=== PATIENT | male | born 1940 | race Caucasian/White ===

== ENCOUNTER 2016-12-14 11:47 | Outpatient (CLI) | payer MEDICARE, OTHER ==
[~2016-12-14] VITALS: Ht 190.5 cm; Wt 88.6 kg
--- NOTE | ~2016-12-14 | HEMODYNAMI ---
PATIENT:KESHAV GIRON MEDICAL RECORD: [id number] : 38 LOCATION:[facility] ADMISSION DATE: 12/14/16 Generatedon:12/14/201615:19 Patient name: KESHAV GIRNO Patient #: [id number] SSN: : 1940 Date of study: 12/14/2016 Page: Of Hemodynamic Procedure Report Patient Data Patient Demographics Procedure consent was obtained First Name: KESHAV Gender: Male Last Name: BREE : 1940 Patient #: [id number] Age: 76 year(s) Race: Unknown Additional ID: [id number] Contact details Address: [address] [place] [address] State: [place] City: [place] Zip code: [address] Admission Admission Data Admission Date: 12/14/2016 Admission Time: 11:47 Height (in.): 74 BSA: 2.14 (m2) Height (cm.): 187.96 BMI: 24.65 (kg/m2) Weight (lbs.): 192 Weight (kg.): 87.09 Lab Results Lab Result Date: 12/14/2016 Lab Result Time: 0:00 Biochemistry Name Units Result Min Max Creatinine mg/dl 1 --(--*-)-- 0.6 1.3 CBC Name Units Result Min Max Hemoglobin g/dl 15.7 --(--*-)-- 13.5 17.5 Procedure Procedure Types Cath Procedure Diagnostic Procedure [facility] w/Coronaries Miscellaneous Procedures Moderate Sedation up to 15 minutes Moderate Sedation up to 30 minutes Procedure Description Procedure Date Procedure Date: 12/14/2016 Procedure Start Time: 14:46 Procedure End Time: 15:17 Procedure Staff Name Function Mo Todd RN Nurse Benny Eubanks MD Performing Physician Angelito Jackman RT Monitor Miranda Chavez RT Scrub Procedure Data Cath Procedure Fluoroscopy Diagnostic fluoroscopy Total fluoroscopy Time: 6.4 time: 6.4 min min Diagnostic fluoroscopy Total fluoroscopy dose: 888 dose: 888 mGy mGy Contrast Material Contrast Material Type Amount (ml) Isovue 300 132 Entry Location Entry Primary Successful Side Size Upsize Upsize Entry Closure Tobias ccessful Closure Location (Fr) 1 (Fr) 2 (Fr) Remarks Device Remarks Radial Right 6 Fr Mechanical artery Short Compression Femoral Right 5 Fr Exoseal artery Estimated blood loss: 5 ml Diagnostic catheters Device Type Used For End Catheter Placement Diagnostic Terumo 5Fr Procedure [place] 110cm catheter Cordis 5Fr JL 4.0 Procedure Catheter (MP) Diagnostic Infinity 5Fr Procedure JL 5 catheter Cordis 5Fr 3DRC Catheter Procedure (MP) Diagnostic Infinity 5Fr Procedure AR 1 MOD catheter Cordis 5Fr Pigtail Procedure Catheter (MP) Procedure Complications No complications Procedure Medications Medication Administration Route Dosage Oxygen NC 2 l/min Lidocaine 2% added to field 20 Heparin Flush Bag added to field 2 bags (1000units/500ml NS) 0.9% NaCl I.V. 100 ml/hr Versed I.V. 1 mg Fentanyl I.V. 50 mcg Versed I.V. 1 mg Fentanyl I.V. 50 mcg Versed I.V. 1 mg Fentanyl I.V. 50 mcg Radial Cocktail I.A. 1 syringe (Verapomil 2mg/Nitro 400mcg/Heparin 1500units) Versed I.V. 1 mg Fentanyl I.V. 50 mcg Hemodynamics Rest BSA: 2.14 (m2) HGB: 15.7 (g/dl) O2 Consumption: Estimated: 239.37 (ml/min) O2 Co nsumption indexed: Estimated:111.86 (ml/min/m) Heart Rate: 63 (bpm) Pressure Samples Time Site Value (mmHg) Purpose Heart Use Rate(bpm) 15:02 LV 107/6,8 EDP 66 Gradients Valve Time Site Site Mean SEP/DFP Peak To Heart Use 1 2 (mmHg) (sec/min) Peak Rate (mmHg) (bpm) Aortic 15:02 LV AO 69 Snapshots Pre Cath Intra NCS Post Cath Vital Signs Time Heart Resp SPO2 NIBP (mmHg) Rhythm Pain Sedation Rate (ipm) (%) Status Level (bpm) 14:36:47 69 17 98 148/87(119) NSR 0 (11) 10(A) , No pain 14:41:01 66 16 96 140/92(112) NSR 0 (11) 10(A) , No pain 14:45:15 67 16 98 139/78(108) NSR 0 (11) 10(A) , No pain 14:49:33 68 16 98 116/67(83) NSR 0 (11) 9(A) , No pain 14:53:43 66 19 94 116/67(93) NSR 0 (11) 9(A) , No pain 14:57:51 67 18 95 133/72(101) NSR 0 (11) 9(A) , No pain 15:02:07 71 17 94 119/66(89) NSR 0 (11) 9(A) , No pain 15:06:17 66 17 96 123/71(90) NSR 0 (11) 10(A) , No pain 15:10:22 62 12 96 132/85(108) NSR 0 (11) 10(A) , No pain 15:14:30 71 14 96 128/89(109) NSR 0 (11) 10(A) , No pain Medications Time Medication Route Dose Verified Delivered Reason Notes Effectiveness by by 14:36:25 Oxygen NC 2 l/min Benny Alejandraie used for St. Charli Todd RN procedure 14:36:32 Lidocaine 2% added 20ml Benny Benny for local to vial [facility] anesthetic field MD ROMERO 14:36:39 Heparin Flush added 2 bags Benny Benny used for Bag to [facility] procedure (1000units/500ml field MD ROMERO NS) 14:36:50 0.9% NaCl I.V. 100 Benny Alejandraie Per ml/hr St. Charli Todd RN physician 14:41:04 Versed I.V. 1 mg Benny Buffie for sedation St. Charli Todd RN, MD 14:41:09 Fentanyl I.V. 50 mcg Benny Buffie for sedation St. Charli Todd RN, MD 14:43:22 Versed I.V. 1 mg Benny Buffie for sedation St. Charli Todd RN, MD 14:43:26 Fentanyl I.V. 50 mcg Benny Buffie for sedation St. Charli Todd RN, MD 14:47:35 Versed I.V. 1 mg Benny Buffie for sedation St. Charli Todd RN, MD 14:47:39 Fentanyl I.V. 50 mcg Benny Alejandraie for sedation St. Charli Todd RN, MD 14:47:47 Radial Cocktail I.A. 1 Benny Zapata for (Verapomil syringe ChaKhushbu Eubanks vasodilation 2mg/Nitro MD ROMERO 400mcg/Hepari 14:56:58 Versed I.V. 1 mg Benny Hassan for sedation St. Charli Todd RN, MD 15:08:35 Fentanyl I.V. 50 mcg Benny Hassan for sedation St. Charli Todd RN, MD Procedure Log Time Note 14:12:18 Patient Height : 187.96 cm 14:12:21 Patient Weight : 87.09 kg 14:12:50 Diagnostic Cath Status : Elective 14:13:20 Mo Todd RN sent for patient. Start room use. 14:13:21 Time tracking: Regular hours 14:13:27 Plan of Care:Hemodynamics will remain stable., Cardiac rhythm will remain stable., Comfort level will be maintained., Respiratory function will remain adequate., Patient/ family verbilizes understanding of procedure., Procedure tolerated without complication., Recovers from procedure without complications.. 14:28:37 Patient received from Pre/Post Procedure Room to CCL 2 Alert and oriented. Tansferred to table in Supine position. 14:28:39 Correct patient and procedure confirmed by team. 14:28:39 Warm blankets applied, and ludivina hugger turned on for patient comfort. 14:28:41 Signed procedure consent form obtained from patient. 14:28:42 ECG and BP/O2 sat monitors applied to patient. 14:28:45 Pre-op teaching completed and patient verbalized understanding. 14:28:45 Pre-procedure instructions explained to patient. 14:28:46 Family in patients room. 14:28:47 Patient NPO since Midnight. 14:28:50 Is the patient allergic to Iodine/contrast media? No. 14:28:54 Previous problem with sedation/anesthesia? No ? 14:28:55 Snore? Yes 14:28:56 Deviated septum? No 14:28:56 Sleep apnea? No 14:28:57 Opens mouth fully? Yes 14:28:58 Sticks out tongue? Yes 14:29:01 Airway obstruction? No ? 14:29:03 Dentures? No ? 14:29:17 Is patient on blood thinner?No 14:29:36 Patient diabetic? Yes. 14:29:37 If diabetic: On Metformin? Yes 14:29:57 If on Metformin: Last Dose? 12/12/2016 14:35:32 Vital chart was started 14:35:36 Rhythm: sinus rhythm 14:35:38 Full Disclosure recording started 14:35:45 Pre procedure: right dorsailis pedis pulse 2+ Normal; easily identifiable; not easily obliterated 14:35:47 Modified Sheldon's test Ulnar < 7 seconds 14:35:50 Patient pain scale 0/10 ?. 14:35:56 IV patent on arrival in left hand with 0.9% NaCl at O. 14:36:01 Lab results completed and on chart. 14:36:05 Right Radial & Right Groin area was prepped with chlora-prep and draped in sterile fashion 14:36:06 Sharps counted by scrub and verified by R.N. 14:36:06 Alarms reviewed by R. N. 14:36:25 Oxygen 2 l/min NC was administered by Mo Todd RN; used for procedure; 14:36:32 Lidocaine 2% 20ml vial added to field was administered by Benny Eubanks MD; for local anesthetic; 14:36:39 Lab Result : Hemoglobin 15.7 g/dl 14:36:39 Lab Result : Creatinine 1 mg/dl 14:36:39 Heparin Flush Bag (1000units/500ml NS) 2 bags added to field was administered by Benny Eubanks MD; used for procedure; 14:36:46 Use device set Radial Dx 14:36:47 Bag Decanter opened to sterile field. 14:36:47 Medline Cath Pack opened to sterile field. 14:36:47 Acist Syringe opened to sterile field. 14:36:48 Acist Hand Control opened to sterile field. 14:36:48 St Gualberto 260cm J .035 wire opened to sterile field. 14:36:48 Terumo 6Fr Slender Glidesheath opened to sterile field. 14:36:49 Tegaderm 4 x 4 opened to sterile field. 14:36:49 Acist Manifold opened to sterile field. 14:36:50 MBrace Wrist Support opened to sterile field. 14:36:50 0.9% NaCl 100 ml/hr I.V. was administered by Mo Todd RN; Per physician; 14:39:12 Baseline sample Acquired. 14:40:23 Final Timeout: patient, procedure, and site verified with staff and physician. All members of the team are in agreement. 14:40:27 Right Radial & Right Groin site verified by team. 14:40:30 Physical assessment completed. ASA score P 2 - A patient with mild systemic disease as per Benny Eubanks MD. 14:40:33 Sedation plan: IV Moderate Sedation Versed, Fentanyl 14:41:04 Versed 1 mg I.V. was administered by Mo Todd RN; for sedation; 14:41:09 Fentanyl 50 mcg I.V. was administered by Mo Todd RN; for sedation; 14:43:22 Versed 1 mg I.V. was administered by Mo Todd RN; for sedation; 14:43:26 Fentanyl 50 mcg I.V. was administered by Mo Todd RN; for sedation; 14:43:30 Zero performed for pressure channel P1 14:46:15 Procedure started. 14:46:21 Local anesthetic to right radial artery with Lidocaine 2% by Benny Eubanks MD.INITIAL ACCESS ONLY 14:46:33 A 6 Fr Short sheath was inserted into the Right Radial artery 14:47:35 Versed 1 mg I.V. was administered by Mo Todd RN; for sedation; 14:47:39 Fentanyl 50 mcg I.V. was administered by Mo Todd RN; for sedation; 14:47:47 Radial Cocktail (Verapomil 2mg/Nitro 400mcg/Heparin 1500units) 1 syringe I.A. was administered by Benny Eubanks MD; for vasodilation; 14:47:56 A Diagnostic Terumo 5Fr [place] 110cm catheter was advanced over the wire and used for Procedure. 14:53:07 Terumo Super Stiff Angled 260cm glide wire opened to sterile field. 14:53:12 Terumo 5Fr Catherine Sheath opened to sterile field. 14:53:17 Use device set Multipack Set 14:53:20 Diagnostic Infinity 5Fr Multipack catheter opened to sterile field. 14:54:24 unable to use radial approach. 14:54:28 Local anesthetic to right femoral artery with Lidocaine 2% by Benny Eubanks MD.ADDITIONAL ACCESS 14:54:37 A 5 Fr sheath was inserted into the Right Femoral artery 14:54:44 A Cordis 5Fr JL 4.0 Catheter () was advanced over the wire and used for Procedure. 14:54:52 Catheter removed. unable to cannulate vessel. 14:55:04 A Diagnostic Infinity 5Fr JL 5 catheter was advanced over the wire and used for Procedure. 14:56:04 LCA angiography performed. 14:56:58 Versed 1 mg I.V. was administered by Mo Todd RN; for sedation; 14:57:28 Catheter exchanged over wire. 14:57:32 A Cordis 5Fr 3DRC Catheter (MP) was advanced over the wire and used for Procedure. 14:59:04 Catheter removed. unable to cannulate vessel. 14:59:17 A Diagnostic Infinity 5Fr AR 1 MOD catheter was advanced over the wire and used for Procedure. 15:00:46 RCA angiography performed. 15:00:49 Catheter exchanged over wire. 15:00:55 A Cordis 5Fr Pigtail Catheter (MP) was advanced over the wire and used for Procedure. 15:02:24 LV gram done using JOSEPH 15:02:26 Injector settings: Ml/sec: 10, Volume: 20, 15:03:01 EF : 55 % 15:03:03 LV hemodynamics recorded. 15:03:50 Aortic Root visualized 15:05:47 Catheter removed. 15:06:16 Cordis 5Fr Exoseal opened to sterile field. 15:06:24 Sheath removed intact; hemostasis achieved with Exoseal to the Right Femoral artery. 15:06:32 Terumo TR Band Standard opened to sterile field. 15:06:47 Sheath removed intact; hemostasis achieved with Mechanical Compression to the Right Radial artery. 15:06:53 Procedure ended.(Physican Out) 15:08:35 Fentanyl 50 mcg I.V. was administered by Mo Todd RN; for sedation; 15:09:09 Fluoroscopy time 06.40 minutes. 15:09:14 Fluoroscopy dose: 888 mGy 15:09:14 Flurop Dose total: 888 15:09:24 Contrast amount:Isovue 300 132ml. 15:10:26 Sharps counted by scrub and verified by R.N. 15:11:45 TR band inflated with 12cc of air. 15:11:52 Insertion/operative site no bleeding no hematoma. 15:11:55 Post-op/insertion site Right Femoral artery dressed using a 4 x 4 and Tegaderm. 15:11:58 Post right femoral artery:stable, soft, clean and dry 15:12:05 Post Procedure Pulses reassessed and unchanged 15:12:10 Post-procedure physical assessment completed. ASA score P 2 - A patient with mild systemic disease as per Benny Eubanks MD. 15:12:15 Post procedure rhythm: unchanged. 15:12:18 Estimated blood loss: 5 ml 15:12:19 Post procedure instruction explained to patient.Patient verbalizes understanding. 15:12:21 Patient needs reinforcement of post procedure teaching. 15:14:35 Procedure type changed to Cath procedure, Diagnostic procedure, LHC, LHC w/Coronaries, Miscellaneous Procedures, Moderate Sedation up to 15 minutes, Moderate Sedation up to 30 minutes 15:17:04 Procedure and supply charges have been captured, reviewed, submitted and are correct. 15:17:06 Procedure Complication : No complications 15:17:08 See physician's report for complete and final results. 15:17:08 Vital chart was stopped 15:17:09 Report given to Pre/Post Procedure Room. 15:17:11 Patient transfered to Pre/Post Procedure Room with Stretcher. 15:17:14 Full Disclosure recording stopped 15:17:14 Procedure ended. 15:17:19 End room use (Document Last) Device Usage Item Name Manufacture Quantity Catalog Hospital Part Current Minimal Lot# / Number Charge Number Stock Stock Serial# Code Acist Acist 1 73100 964170 848094 969664 20 Syringe Medical Systems Inc Medline Cardinal 1 [id number] 044484 12423 264010 5 Cath Pack Health Bag Microtek 1 2002S 368818 60656 955108 5 Dec[employer]oah [employer] Terumo 6Fr Terumo 1 [id number] 051558 913241 911091 [address] St Gualberto 1 474462 819046 704515 797873 30 260cm J .035 wire Acist Hand Acist 1 39474 422505 587185 765252 5 Control Medical Systems Inc Acist Acist 1 50975 209755 583331 871953 5 Manifold Medical Systems Inc Tegaderm 4 3M 1 1626W 943536 661064 043687 5 x 4 MBrace Advanced 1 140-0250-00 884106 41691 018825 5 Wrist Vascular Support Dynamics Diagnostic Terumo 1 40-0075 737176 156527 155827 5 Terumo 5Fr [place] 110cm catheter Terumo Terumo 1 [id number] 593520 158566 600252 5 Super Stiff Angled 260cm glide wire Terumo 5Fr Terumo 1 [id number] 219465 399173 940714 40 Catherine Sheath Diagnostic Cardinal 1 [id number] 270210 05366 618177 30 [facility] 5Fr Multipack catheter Cordis 5Fr Cardinal 1 445442 5 JL 4.0 Health Catheter (MP) Diagnostic Cardinal 1 [id number] 644283 776160 649171 5 [facility] 5Fr JL 5 catheter Cordis 5Fr Cardinal 1 686331 5 3DRC Health Catheter (MP) Diagnostic Cardinal 1 [id number] 601324 414767 965005 15 [facility] 5Fr AR 1 MOD catheter Cordis 5Fr Cardinal 1 070223 5 Pigtail Health Catheter (MP) Cordis 5Fr Cardinal 1 EX500 479823 162371 456500 10 [employer]eal Health Terumo TR Terumo 1 [id number] 240021 607859 349150 40 Band Standard Signature Audit [place] Stage Time Signature Unsigned Intra-Procedure 12/14/2016 Angelito Jackman RT(R) 3:17:39 PM RT(R) 12/14/2016 3:19:04 PM Intra-Procedure 12/14/2016 Angelito Jackman 3:19:33 PM RT(R) Signatures Monitor : Angelito Jackman RT Signature : Date : Time : [facility] [address] [place] [address]
[~2016-12-14 11:47] MED LIST: ACETAMINOPHEN325 MG PO; ATIVAN1 MG PO; BRILINTA90 MG PO; FLOMAX0.4 MG PO; GLUCOPHAGE1000 MG PO; PROTONIX40 MG PO
[2016-12-14 12:34] LABS: BASOPHILS 0.4 % (0-2); HEMATOCRIT 44.9 % (42.0-54.0); HEMOGLOBIN 15.7 g/dL (13.5-17.5); LYMPHOCYTES 20.9 % (15-50); MCH 32.8 pg (26.0-34.0); MCV 93.7 fL (80.0-100.0); MONOCYTES 7.6 % (2-11); NEUTROPHILS 70.1 % (40-80); PLATELET COUNT 134 10x3/uL (130-400); RBC 4.79 10x6/uL (4.20-6.10)
[2016-12-14] MEDS ORDERED: LIPITOR10 MG PO (12:41)
[2016-12-14] MEDS ORDERED: ULTRAM50 MG PO (12:41)
[2016-12-14 12:48] LABS: CALC OSMOLALITY 284 mosm/kg (275-300); CALCIUM 9.4 mg/dL (8.5-10.1); CARBON DIOXIDE 26.3 mmol/L (21.0-32.0); CHLORIDE - SERUM 106 mmol/L (98-107); GLUCOSE 131 mg/dL (74-106); SODIUM 141 mmol/L (136-145); UREA NITROGEN 19 mg/dL (7-18); eGFR NON AFRICAN AMERICAN 77 mL/min (90-120)
[2016-12-14 12:50] VITALS: BP 154/87; BMI 24.4
--- NOTE | 2016-12-14 15:43 | NUR ---
1520 RECEIVED PT FROM OIL DEVELOPER. PT IS DROWSY, DENIES ANY C/O CHEST PAIN OR NAUSEA. NORMAL SINUS RHYTHM WITH RATE OF 60. TR BAND TO RIGHT WRIST IS CDI, NO BLEEDING OR HEMATOMA NOTED. FINGERS WARM TO TOUCH, CAP REFILL IS BRISK. EXOSEAL TO RIGHT GROIN IS CDI, AREA IS SOFT AND NONTENDER. PEDAL PULSES PALPABLE. FEET WARM, CAP REFILL IS BRISK. 1535 RIGHT GROIN DRESSING AND TR BAND REMAIN CDI, NO BLEEDING OR HEMATOMA NOTED. PULSES PALPABLE. PT DENIES ANY C/O.
--- NOTE | 2016-12-14 16:16 | NUR ---
1550 PT DENIES ANY C/O. TR BAND AND EXOSEAL DRESSINGS ARE CDI, NO BLEEDING OR HEMATOMA NOTED AT EITHER SITE. PULSES PALPABLE, CAP REFILL IS BRISK. FAMILY AT BEDSIDE. PT EVERT PO FLUIDS WITH NO C/O. CALL LIGHT IS IN REACH.
--- NOTE | 2016-12-14 16:23 | NUR ---
1620 2 CC OF AIR REMOVED FROM TR BAND WITH NO BLEEDING OR HEMATOMA NOTED.
--- NOTE | 2016-12-14 16:40 | NUR ---
3CC AIR OUT OF TR BAND- NO BLEEDING NOTED.
--- NOTE | 2016-12-14 17:05 | NUR ---
HR DROPPED TO 38, JUNCTIONAL RHYTHM NOTED ON MONITOR. PT DENIES CHEST PAIN OR DISCOMFORT.
--- NOTE | 2016-12-14 17:20 | NUR ---
CONTINUES WITH ARRHYTHMIA, DENIES DISCOMFORT, DR FAROOQ PAGED- NEW ORDERS RECEIVED.
--- NOTE | 2016-12-14 17:40 | NUR ---
AWAITING PCU BED, TR BAND WITH ALL AIR OUT- NO BLEEDING AT SITE. RIGHT GROIN CDI-NO HEMATOMA OR BLEEDING AT SITE.
--- NOTE | 2016-12-14 18:15 | NUR ---
VSS,REPORT CALLED TO PCU NURSE-OTONIEL BOYER. IV CDI TO LEFT FOREARM-PATENT WITH A TOLTAL OF 500CC NS INFUSED. DAUGHTER AT SIDE.
--- NOTE | 2016-12-14 18:29 | NUR ---
TRANSFER TO PCU VIA . [place] GIVEN FOR C/O HEADACHE.
[2016-12-14 19:00] VITALS: BP 130/75
--- NOTE | 2016-12-14 19:04 | NUR ---
ADMIT TO ROOM 2117 FROM KITCHEN AIDE. S/P [facility] WITH NO INTERVENTION. TR BAND AND RIGHT GROIN SITE WITH DRESSINGS C/D/I. IV TO LFA SALINE LOCKED. NONLABORED RESPIRATIONS ON ROOM AIR. WILL BE STAYING OVERNIGHT FOR OBSERVATION DUE TO TELEMETRY SHOWING PT WITH JUNCTIONAL RHYTHM POST CATH.
--- NOTE | 2016-12-14 23:24 | NUR ---
RESTING WITH NO DISTRESS. TELEMETRY SINUS ALEJANDRO 40-50'S. CPOC.
[2016-12-15] VITALS: BP 147/85
[2016-12-15 00:26] VITALS: BP 154/87; Ht 190.5 cm; Wt 88.6 kg
[2016-12-15 04:00] VITALS: BP 164/79
[2016-12-15 08:29] VITALS: BP 152/77
--- NOTE | 2016-12-15 09:33 | NUR ---
DR. SUAREZ NOTIFIED. HR 65 SR. OK TO DC HOME. IV AND TELEMETRY DCD. DC PLANS GIVEN. UNDERSTANDING VOICED.
--- NOTE | 2016-12-15 09:44 | NUR ---
ESCORTED TO CAR BY W/C.
--- NOTE | 2016-12-16 13:55 | OP ---
PATIENT NAME: KESHAV GIRON MEDICAL RECORD: [id number] :38 LOCATION:D.[facility] ADMISSION DATE: SURGEON: MARBIN SUAREZ MD DATE OF OPERATION: 12/14/2016 PROCEDURES: Left heart catheterization, selective coronary angiography, right femoral artery approach. CATHETERS: A 5-Saudi Arabian sheath, 5/4 left and right Victor Hugo, 5/4 pig. We had to exchange to a 5/5 Victor Hugo due to aortic root size. The procedure was tolerated and the patient returned to the bullock, sheath removed and ExoSeal device was placed. FINDINGS: Left ventriculography in 30-degree JOSEPH view: Normal wall motion, normal systolic function. CORONARY ANATOMY: LEFT MAIN: Left main is free of disease. LEFT ANTERIOR DESCENDING: Luminal irregularities, no flow obstructive disease. CIRCUMFLEX: Area previous seen widely patent. RIGHT CORONARY ARTERY: Widely patent. Aortic root injection shows dilated aortic root. IMPRESSION: Dilated aortic root. We will plan a CTA of the aortic root and great vessels to better delineate aortic aneurysm anatomy. TRANSINT:[id number] Voice Confirmation ID: [id number] DOCUMENT ID: [id number] MARBIN SUAREZ MD at 1355 CC: [id number] DICTATION DATE: 12/14/16 1549 AGRONOMY RESEARCH MANAGER: 12/14/16 2150 DEP CLI 12/15/16 [place] [address] [place] [address]
== END 2016-12-15 09:45 | disposition home or self-care (01) ==
LOC: D.CATH 11:47 → D.M2 18:30 → D.CATH 12-15 09:45
PROVIDERS: Internal Medicine Interventional Cardiology
DX: I25.119 Atherosclerotic heart disease of native coronary artery with unspecified angina pectoris (principal); E78.5 Hyperlipidemia, unspecified; I10 Essential (primary) hypertension; Z01.812 Encounter for preprocedural laboratory examination

== ENCOUNTER → 2016-12-17 14:54 | Outpatient (CLI) | payer MEDICARE, OTHER ==
[2016-12-15 00:26] VITALS: BMI 24.4
[~2016-12-17 14:54] MED LIST changes: +LIPITOR10 MG PO; +ULTRAM50 MG PO
== END | disposition home or self-care (01) ==
LOC: D.CT 14:54
DX: R06.00 Dyspnea, unspecified (principal)

== ENCOUNTER → 2019-01-17 07:59 | Outpatient (CLI) | payer MEDICARE, OTHER ==
[2016-12-15 00:26] VITALS: BMI 24.4
--- NOTE | 2019-01-21 09:56 | EC ---
PATIENT:KESHAV GIRON DATE OF SERVICE: 01/17/19 SEX: M MEDICAL RECORD: [id number] DATE OF : 38 LOCATION:[facility] AGE OF PATIENT: 78 ADMISSION DATE: 01/17/19 REFERRING PHYSICIAN: INTERPRETING PHYSICIAN: MARBIN SUAREZ MD ECHOCARDIOGRAM REPORT ECHO CHARGES 4 ECHO COMPLETE Date: 01/17/19 CLINICAL DIAGNOSIS: PURI H/O CAD ECHOCARDIOGRAPHIC MEASUREMENTS (adult normal given) AC root (d.<3.7cm) 4.4 cm LV Septum d (<1.2 cm> 1.6 cm Valve Excursion 2.6 cm LV Septum (systole) 1.8 cm Left Atria (s.<4.0cm> 4.1 cm LVPW d(<1.2cm) 1.2 cm RV (d.<2.3cm) 2.5 cm LVPW (sytole) 1.7 cm LV diastole(<5.6CM) 6.4 cm MV E-F(>70mm/sec) cm LV systole 4.9 cm LVOT Diameter 2.5 cm MV exc.(>10mm) cm Est.ejection fraction (50-75%) % DOPPLER: LVIT cm/sec A 66.0 cm/sec E 39.0 cm/sec LA cm/sec RVSP 22.3 mmHg LVOT 98.0 cm/sec AOP1/2T m/s Asc. Ao 92.0 cm/sec RVOT 59.0 cm/sec RA cm/sec PA 69.0 cm/sec AV Gradient Peak 3.4 mmHg AV Mean 1.8 mmHg AV Area 5.6 cm MV Gradient Peak 2.7 mmHg MV Mean 0.95 mmHg MV Area cm COMMENTS: OP - HC Pretzel Packer: 1 DANO CY Compliance Aide: 3 Dr. Eubanks TAPE# PACS Pericardial Effusion N DATE OF SERVICE: Adequate 2D, Color Flow, Spectral Doppler, and M-Mode Borderline LVH. LV internal dimension is dilated. LV is globally hypokinetic with reduced EF, estimated EF 30% to 35%. Aortic valve is tricuspid. No evidence of stenosis by Doppler interrogation. There is mild AI by color flow imaging. Left atrium is mildly dilated at 4.1 cm. Mitral valve shows no prolapse. Mild MR. Right-sided chambers are grossly normal. Trace TR. ECHOCARDIOGRAM REPORT [id number] KESHAV GIRON TRANSINT:[id number] Voice Confirmation ID: [id number] DOCUMENT ID: [id number] MARBIN SUAREZ MD at 0956 CC: [id number] DICTATION DATE: 01/18/19 1349 CHIEF ESTIMATOR: 01/19/19 0002 DEP CLI 01/17/19 [place] [id number] [place] [id number]
== END | disposition home or self-care (01) ==
LOC: D.HCCECHO 07:59
PROVIDERS: ATTEND Internal Medicine Interventional Cardiology
DX: R06.00 Dyspnea, unspecified (principal)

== ENCOUNTER → 2020-01-30 07:53 | Outpatient (CLI) | payer MEDICARE, OTHER ==
[2016-12-15 00:26] VITALS: BMI 24.4
--- NOTE | ~2020-01-30 | EC ---
PATIENT:KESAHV GIRON DATE OF SERVICE: 01/30/20 SEX: M MEDICAL RECORD: [id number] DATE OF : 38 LOCATION:[facility] AGE OF PATIENT: 79 ADMISSION DATE: 01/30/20 REFERRING PHYSICIAN: INTERPRETING PHYSICIAN: MARBIN SUAREZ MD ECHOCARDIOGRAM REPORT ECHO CHARGES 4 ECHO COMPLETE Date: 01/30/20 CLINICAL DIAGNOSIS: CAD/AORITC INSUFF/ATRIAL FIB ECHOCARDIOGRAPHIC MEASUREMENTS (adult normal given) AC root (d.<3.7cm) 4.6 cm LV Septum d (<1.2 cm> 1.1 cm Valve Excursion 1.4 cm LV Septum (systole) 1.3 cm Left Atria (s.<4.0cm> 4.6 cm LVPW d(<1.2cm) 1.4 cm RV (d.<2.3cm) 4.5 cm LVPW (sytole) 1.5 cm LV diastole(<5.6CM) 5.7 cm MV E-F(>70mm/sec) cm LV systole 4.5 cm LVOT Diameter 2.1 cm MV exc.(>10mm) 1.4 cm Est.ejection fraction (50-75%) % DOPPLER: LVIT cm/sec A cm/sec E 89.0 cm/sec LA cm/sec RVSP 22 mmHg LVOT 63 cm/sec AOP1/2T m/s Asc. Ao 101 cm/sec RVOT 69 cm/sec RA cm/sec PA 112 cm/sec AV Gradient Peak 4.08 mmHg AV Mean 1.86 mmHg AV Area 2.4 cm MV Gradient Peak 4.86 mmHg MV Mean 1.96 mmHg MV Area cm COMMENTS: Lime Plant Operator: 2 MILY SAINZ Senior Living Sales Counselor: 3 Dr. Eubanks TAPE# pacs Pericardial Effusion N DATE OF SERVICE: Adequate 2D echo, color-flow imaging, spectral Doppler, and M-Mode No LVH. LV internal dimension is upper limits of normal at 5.7 cm. LV appears to be mildly globally hypo with EF lower limits of normal to mildly reduced at 45% to 50%. Aortic valve sclerosed without stenosis by Doppler interrogation. There is mild AI by color flow imaging. Left atrium is dilated at 4.6 cm. Mitral valve is thickened. Mild MR. Right-sided chambers are grossly normal. Mild TR. ECHOCARDIOGRAM REPORT [id number] KESHAV GIRON TRANSINT:[id number] Voice Confirmation ID: [id number] DOCUMENT ID: [id number] MARBIN SUAREZ MD CC: [id number] DICTATION DATE: 01/31/20 1333 GAMING DEPARTMENT HEAD: 01/31/20 1540 DEP CLI 01/30/20 [place] [id number] [place] [id number]
== END | disposition home or self-care (01) ==
LOC: D.HCCECHO 01-24 08:30
PROVIDERS: ATTEND Internal Medicine Interventional Cardiology
DX: I25.10 Atherosclerotic heart disease of native coronary artery without angina pectoris (principal)